=== PATIENT | female | born 2000 | race African-American/Black ===

== ENCOUNTER 2021-10-05 22:16 | Day surgery (SDC) | payer BC ==
[2021-10-05] MEDS ORDERED: hydrALAZINE 20 MG/ML VIAL SLOW IVP PRN (22:50)
[2021-10-05 23:12] LABS: Bilirubin Neg (Negative); Blood, Urine Negative (Negative); Clarity Clear (Clear); Glucose, Urine (Dipstick) Normal (Negative); Ketone, Urine Negative (Negative); Leukocyte Negative (Negative); Nitrite Negative (Negative); Protein, Urine (Dipstick) Negative (Neg-Trace); Urobilinogen Normal mg/dL (Less than 2)
[2021-10-05 23:37] LABS: Urine Culture Reflex No No
[2021-10-05 23:42] LABS: Bacteria/HPF Rare-Few HPF (None Seen); RBC/HPF 0-3 HPF (0-3); Squamous Epithelial 0-3 HPF (0-3); Transitional Epithelial 0-3 HPF (None Seen); WBC/HPF 0-3 HPF (0-3)
== END 2021-10-06 00:26 | disposition home or self-care (01) ==
LOC: CSHLD/OP 22:16
PROVIDERS: ATTEND Obstetrics & Gynecology
DX: O23.592 Infection of other part of genital tract in pregnancy, second trimester (principal); Z3A.27 27 weeks gestation of pregnancy
CPT/HCPCS: 81001; 87480; 87510; 87660

== ENCOUNTER 2021-12-20 04:04 | Inpatient (IN) | payer BC, OTHER ==
[2021-12-20 04:30] VITALS: BMI 40.0
[2021-12-20] MEDS ORDERED: Calcium Gluc 4.6 MEQ/10 ML (100 MG/ML) SLOW IVP PRN (05:05)
[2021-12-20] MEDS ORDERED: Promethazine HCl 25 MG/ML VIAL IM PRN ×2 (05:05→12:02)
[2021-12-20] MEDS ORDERED: Ondansetron PF 4 MG/2 ML Vial IVP PRN ×2 (05:05→12:02)
[2021-12-20] MEDS ORDERED: Lorazepam 2 MG/ML VIAL SLOW IVP PRN (05:05)
[2021-12-20] MEDS ORDERED: Acetaminophen 500 MG TAB PO PRN (05:06)
[2021-12-20] MEDS ORDERED: Docusate 100 MG CAP PO PRN (05:06)
[2021-12-20] MEDS ORDERED: Penicillin G Potassium 5 MILL.UNITS VIAL ONE (05:07)
[2021-12-20] MEDS ORDERED: hydrALAZINE 20 MG/ML VIAL ONE (05:07)
[2021-12-20] MEDS ORDERED: Magnesium Sulfate 20 gm/500 ml 20 GM/500 ML BAG ONE ×2 (05:08→13:18)
[2021-12-20] MEDS ORDERED: Misoprostol 200 MCG TAB PR PRN (05:09)
[2021-12-20] MEDS ORDERED: Carboprost 250 MCG/ML AMP IM PRN (05:09)
[2021-12-20] MEDS ORDERED: Lidocaine 1% (PF) 30 ML VIAL SC PRN (05:09)
[2021-12-20] MEDS ORDERED: Ibuprofen 800 MG TAB PO PRN (05:09)
[2021-12-20] MEDS ORDERED: Labetalol HCl 100 MG/20 ML VIAL SLOW IVP PRN ×2 (05:11)
[2021-12-20] MEDS ORDERED: hydrALAZINE 20 MG/ML VIAL SLOW IVP PRN ×2 (05:11)
[2021-12-20] MEDS ORDERED: Magnesium Sulfate 4 GM in Sodium Chloride 0.9% 250 ML 250 ML IVPB SCH (05:30)
[2021-12-20] MEDS ORDERED: Magnesium Sulfate 20 gm/500 ml 4 GM/100 ML BAG IVPB SCH (06:00)
[2021-12-20] MEDS ORDERED: Penicillin G Potassium 5 MILL.UNITS in Sodium Chloride 0.9% 100 ML IVPB SCH (06:00)
[2021-12-20] MEDS ORDERED: NS w/ Oxytocin 30 units 500 ML IV SCH ×2 (06:00)
[2021-12-20 06:06] LABS: Hemoglobin 11.2 g/dL (12.0-15.5); Mean Corpuscular HGB CONC 34.1 g/dL (32.0-36.0); Mean Corpuscular Hemoglobin 29.2 pg (27.0-33.0); Mean Corpuscular Volume 85.6 fl (81.6-98.3); Platelet Count 238 10x3/uL (150-450); RBC Distribution Width 13.4 % (11.5-14.5); Red Blood Cell (RBC) Count 3.83 10x6/uL (3.90-5.03); White Blood Cell (WBC) Count 9.5 10x3/uL (3.5-10.5)
[2021-12-20 06:11] LABS: ALT (SGPT) 16 U/L (8-55); AST (SGOT) 16 U/L (5-34); Albumin 3.4 g/dL (3.5-5.0); Alkaline Phosphatase 172 U/L (40-110); Anion Gap 15 mmol/L (10-20); BUN (Urea Nitrogen) 11 mg/dL (7.0-18.7); Bilirubin, Total 0.3 mg/dL (0.2-1.2); Calc. Creatinine Clearance 226 mL/min (70-130); Calcium 8.5 mg/dL (7.8-10.44); Carbon Dioxide 17 mmol/L (22-29); Chloride 109 mmol/L (98-107); Estimated GFR 126; Globulin 2.9 g/dL (2.4-3.5); Glucose 83 mg/dL (70-105); Potassium 4.1 mmol/L (3.5-5.1); Protein, Total 6.3 g/dL (6.0-8.3); Sodium 137 mmol/L (136-145)
[2021-12-20 06:29] LABS: Syphilis Antibody Nonreactive (Nonreactive); Syphilis Antibody Index 0.04 S/CO (<1.00 Non-Reactive)
[2021-12-20 06:31] LABS: HBSAg Index 0.22 S/CO (0-0.99); HIV (1/2) Antibody/Antigen Non-Reactive (NonReactive); HIV 1/2 INDEX 0.07 S/CO (<1.00); Hep B Surf Ag Non-Reactive S/CO (NonReactive)
[2021-12-20 06:46] LABS: Creatinine, Urine 120.51 mg/dL (47-110)
[2021-12-20 07:10] LABS: SARS-CoV-2 NAA Rapid Test Not Detected (NotDetected)
[2021-12-20] MEDS: Acetaminophen 500 MG TAB PO PRN (07:33)
[2021-12-20] MEDS: Penicillin G 2.5 MILL.units 2.5 MILL.UNITS in Premix Bag 1 BAG IVPB SCH ×2 (10:16→13:18)
[2021-12-20] MEDS: hydrALAZINE 20 MG/ML VIAL SLOW IVP PRN ×2 (10:28→23:25)
[2021-12-20] MEDS ORDERED: Fentanyl 2 mcg/Bup 0.1% Cadd 100 ML ONE (11:00)
[2021-12-20] MEDS ORDERED: ePHEDrine Sulfate 50 MG/10 ML VIAL SLOW IVP PRN (12:02)
[2021-12-20] MEDS ORDERED: Naloxone HCl 0.4 mg/ml Vial IVP PRN ×2 (12:02)
[2021-12-20] MEDS ORDERED: diphenhydrAMINE 50 MG/ML VIAL IVP PRN (12:02)
[2021-12-20] MEDS ORDERED: Acetaminophen 325 MG TAB PO PRN (12:02)
[2021-12-20] MEDS ORDERED: Moisturizing Cream (Eucerin) 113 GM JAR TOP PRN (12:02)
[2021-12-20] MEDS ORDERED: Lactated Ringer's 500 ML IV PRN (12:12)
[2021-12-20] MEDS ORDERED: Fentanyl 2 mcg/Bupivacaine 0.1% Cassette 100 ML EPIDURAL SCH (12:15)
[2021-12-20] MEDS ORDERED: Communication Order-Pharmacy FS SCH (12:15)
[2021-12-20] MEDS ORDERED: Fentanyl 100 MCG/2 ML VIAL ONE (15:58)
[2021-12-20] MEDS ORDERED: NIFEdipine XL 30 MG TAB PO ONE (20:30)
[2021-12-20] MEDS ORDERED: NIFEdipine XL 30 MG TAB PO SCH (21:15)
[2021-12-21] MEDS ORDERED: Magnesium Sulfate 20 gm/500 ml 20 GM/500 ML BAG ONE ×2 (00:46→10:56)
[2021-12-21] MEDS ORDERED: Benzocaine-Menthol 82.5 ML CAN TOP PRN (07:49)
[2021-12-21] MEDS ORDERED: hydrALAZINE 20 MG/ML VIAL SLOW IVP PRN ×3 (07:49→10:55)
[2021-12-21] MEDS ORDERED: Misoprostol 200 MCG TAB VAG PRN (07:49)
[2021-12-21] MEDS ORDERED: Bisacodyl 10 MG SUPP PR PRN (07:49)
[2021-12-21] MEDS ORDERED: Lanolin Ointment 7 GM TUBE TOP PRN (07:49)
[2021-12-21] MEDS ORDERED: Milk Of Magnesia 30 ML UDCUP PO PRN (07:49)
[2021-12-21] MEDS ORDERED: NS w/ Oxytocin 30 units 500 ML IV SCH (08:00)
[2021-12-21] MEDS ORDERED: NIFEdipine XL 30 MG TAB PO SCH (09:00)
[2021-12-21] MEDS ORDERED: Ferrous Sulfate 325 MG TAB PO SCH (09:00)
[2021-12-21] MEDS: Docusate 100 MG CAP PO SCH ×2 (09:27→22:00)
[2021-12-21] MEDS: Acetaminophen 500 MG TAB PO PRN (09:32)
[2021-12-21] MEDS ORDERED: Labetalol HCl 100 MG/20 ML VIAL SLOW IVP PRN (10:55)
[2021-12-21] MEDS ORDERED: Calcium Gluc 4.6 MEQ/10 ML (100 MG/ML) SLOW IVP PRN (10:55)
[2021-12-21] MEDS ORDERED: Lorazepam 2 MG/ML VIAL SLOW IVP PRN (10:55)
[2021-12-21] MEDS ORDERED: Magnesium Sulfate 20 gm/500 ml 20 GM/500 ML BAG IVPB SCH (11:00)
[2021-12-21] MEDS: Ibuprofen 800 MG TAB PO SCH ×2 (14:26→22:00)
[2021-12-21] MEDS: Prenatal Vitamin 1 TAB PO SCH (14:26)
[2021-12-21] MEDS ORDERED: HYDROcodone/Acetaminophen 5/325 mg Tablet PO PRN ×2 (15:07)
[2021-12-21] MEDS: Ferrous Sulfate 325 MG TAB PO SCH (21:31)
[2021-12-21] MEDS: NIFEdipine XL 30 MG TAB PO SCH (22:00)
[2021-12-22] MEDS: Ibuprofen 800 MG TAB PO SCH ×3 (05:59→21:00)
[2021-12-22] MEDS: Ferrous Sulfate 325 MG TAB PO SCH ×2 (09:02→17:59)
[2021-12-22] MEDS: Docusate 100 MG CAP PO SCH ×2 (09:03→20:59)
[2021-12-22] MEDS: NIFEdipine XL 30 MG TAB PO SCH ×2 (09:03→21:00)
[2021-12-22] MEDS: Prenatal Vitamin 1 TAB PO SCH (09:03)
[2021-12-23] MEDS: Lactated Ringer's 1,000 ML IV SCH ×4 (01:01→21:18)
[2021-12-23] MEDS: Penicillin G 2.5 MILL.units 2.5 MILL.UNITS in Premix Bag 1 BAG IVPB SCH ×2 (01:02→05:15)
[2021-12-23] MEDS: Ibuprofen 800 MG TAB PO SCH ×3 (05:13→21:18)
[2021-12-23] MEDS: Prenatal Vitamin 1 TAB PO SCH (08:40)
[2021-12-23] MEDS: Docusate 100 MG CAP PO SCH ×2 (08:41→21:18)
[2021-12-23] MEDS: NIFEdipine XL 30 MG TAB PO SCH (08:41)
[2021-12-23] MEDS: Ferrous Sulfate 325 MG TAB PO SCH ×2 (08:48→17:14)
[2021-12-23 09:34] LABS: #Monocytes 0.5 10x3/uL (0.0-1.1); #Neutrophils 5.5 10x3/uL (1.5-8.4); %Basophils 0.1 % (0.0-2.0); %Eosinophils 0.4 % (0.0-6.0); %Lymphocytes 32.6 % (18.0-47.0); %Monocytes 5.8 % (0.0-10.0); %Neutrophils 60.8 % (40.0-75.0); Hemoglobin 9.9 g/dL (12.0-15.5); Mean Corpuscular HGB CONC 33.9 g/dL (32.0-36.0); Mean Corpuscular Hemoglobin 29.4 pg (27.0-33.0); Mean Corpuscular Volume 86.6 fl (81.6-98.3); Mean Platelet Volume 10.9 fl (7.4-10.4); Platelet Count 255 10x3/uL (150-450); RBC Distribution Width 14.2 % (11.5-14.5); Red Blood Cell (RBC) Count 3.37 10x6/uL (3.90-5.03); White Blood Cell (WBC) Count 9.1 10x3/uL (3.5-10.5)
[2021-12-23] MEDS ORDERED: NIFEdipine XL 30 MG TAB PO SCH (10:00)
[2021-12-23] MEDS ORDERED: Labetalol HCl 200 MG TAB PO SCH (10:00)
[2021-12-23] MEDS: Labetalol HCl 200 MG TAB PO SCH (21:18)
[2021-12-24] MEDS: Lactated Ringer's 1,000 ML IV SCH ×2 (05:17→15:38)
[2021-12-24] MEDS: Ibuprofen 800 MG TAB PO SCH ×2 (05:18→15:37)
[2021-12-24] MEDS: Prenatal Vitamin 1 TAB PO SCH (08:26)
[2021-12-24] MEDS: Docusate 100 MG CAP PO SCH (08:26)
[2021-12-24] MEDS: Ferrous Sulfate 325 MG TAB PO SCH (08:26)
[2021-12-24] MEDS: Labetalol HCl 200 MG TAB PO SCH (08:26)
[2021-12-24] MEDS ORDERED: NIFEdipine XL 60 MG TAB PO SCH (09:00)
[2021-12-24 11:54] VITALS: BP 133/83; TEMP 98.4
== END 2021-12-24 15:58 | disposition home or self-care (01) | DRG 807 ==
LOC: CSHLD/OP 04:04 → CSHLD 05:08 → CSHPP 12-21 18:40
PROVIDERS: ADMIT Obstetrics & Gynecology; ATTEND Obstetrics & Gynecology
PROC: 10E0XZZ Delivery of Products of Conception, External Approach (ICD-10-PCS; principal; 2021-12-20)
DX: O14.14 Severe pre-eclampsia complicating childbirth (principal); Z37.0 Single live birth; Z3A.38 38 weeks gestation of pregnancy; Z20.822 Contact with and (suspected) exposure to COVID-19; O99.824 Streptococcus B carrier state complicating childbirth; E66.9 Obesity, unspecified; O99.214 Obesity complicating childbirth; O76 Abnormality in fetal heart rate and rhythm complicating labor and delivery; O69.81X0 Labor and delivery complicated by cord around neck, without compression, not applicable or unspecified
CPT/HCPCS: 36415; 51702; 80053; 82570; 84156; 85025; 85027; 86780; 86850; 86900; 86901; 87340; 87389; 99285; J0360; J0595; J2540; J2590; J3475; U0002